=== PATIENT | female | born 1960 | race Caucasian/White ===

== ENCOUNTER 2020-05-21 08:26 | Emergency (ER) | payer OTHER ==
[~2020-05-21] VITALS: Ht 175.3 cm; Wt 85.9 kg
[~2020-05-21 08:26] MED LIST: NITR100C62 PO; NORE-83 PO
[2020-05-21 08:33] VITALS: BP 179/83
--- NOTE | 2020-05-21 08:57 | PHYS DOC ---
Past Medical History Past Medical History: Hypertension Past Surgical History: No Surgical History Smoking Status: Never Smoker Alcohol Use: Occasionally General Adult EDM: Chief Complaint: HAND PROBLEM HPI: HPI: Patient is a 60 year old female who had a mechanical fall onto gravel yesterday and her landed on her landing on her left hand. Patient complains of moderate pain in the left hand and fingers some mild pain to the left elbow better or worse with palpation and range of motion. Patient denies hitting her head or having any other injuries. Patient has abrasions to the hand and try to remove the ring on her left ring finger with a piece of string but was unsuccessful. Review of Systems: Review of Systems: Constitutional: Denies fever or chills. [] Eyes: Denies change in visual acuity. [] HENT: Denies nasal congestion or sore throat. [] Respiratory: Denies cough or shortness of breath. [] Cardiovascular: Denies chest pain or edema. [] GI: Denies abdominal pain, nausea, vomiting, bloody stools or diarrhea. [] : Denies dysuria. [] Musculoskeletal: Denies back pain but has left hand pain Integument: Denies rash. [] Neurologic: Denies headache, focal weakness or sensory changes. [] Endocrine: Denies polyuria or polydipsia. [] Lymphatic: Denies swollen glands. [] Psychiatric: Denies depression or anxiety. [] Heart Score: Risk Factors: Risk Factors: DM, Current or recent (<one month) smoker, HTN, HLP, family history of CAD, obesity. Risk Scores: Score 0 - 3: 2.5% MACE over next 6 weeks - Discharge Home Score 4 - 6: 20.3% MACE over next 6 weeks - Admit for Clinical Observation Score 7 - 10: 72.7% MACE over next 6 weeks - Early Invasive Strategies Allergies: Allergies: Allergies Coded Allergies Type Severity Reaction Last Updated Verified No Known Drug Allergies 08/26/13 No Physical Exam: PE: Constitutional: Well developed, well nourished, no acute distress, non-toxic appearance. [] HENT: Normocephalic, atraumatic, bilateral external ears normal, no trismus, nose normal. [] Eyes: PERRLA, EOMI, conjunctiva normal, no discharge. [] Neck: Normal range of motion, no tenderness, supple, no stridor. [] Cardiovascular:Heart rate regular rhythm, no murmur [] Lungs & Thorax: Bilateral breath sounds clear to auscultation [] Abdomen: Bowel sounds normal, soft, no tenderness, no masses, no pulsatile masses. [] Skin: Warm, dry, no erythema, scattered abrasions to the left hand small bruise to left elbow with bruising to left elbow Back: No tenderness, no CVA tenderness. [] Extremities: Scattered abrasions to the left hand and fingers swelling to the left pinky finger. Neurovascular intact distally. Small bruising and mild tenderness to left elbow, full range of motion, neurovascular intact distally Neurologic: Alert and oriented X 3, normal motor function, normal sensory function, no focal deficits noted. [] Psychologic: Affect normal, judgement normal, mood normal. [] Current Patient Data: Vital Signs: Vital Signs Date Time Temp Pulse Resp B/P (MAP) Pulse Ox O2 Delivery O2 Flow Rate FiO2 05/21/20 08:33 98.1 54 16 179/83 (115) 98 Room Air 98.1 EKG: EKG: [] Radiology/Procedures: Radiology/Procedures: [][facility] [address] [place] [address] IMAGING REPORT Signed PATIENT: TEAGAN CAMARGO ACCOUNT: [id number] : 1960 LOCATION: ER AGE: 60 SEX: F EXAM STATUS: REG ER ORD. PHYSICIAN: ANTOINETTE BEAN MD REASON: fall, hand injury PROCEDURE: HAND LEFT 3V HAND LEFT 3V DATE: 05/21/2020 8:55 AM INDICATION: fall, hand injury COMPARISON: None. FINDINGS: Bones: There is no evidence of acute fracture or dislocation. Joints: The joint spaces are normal. Miscellaneous: Several punctate densities overlying the third-fifth digits IMPRESSION: No evidence of acute fracture. Several punctate densities overlying the third-fifth digits which could be on the skin surface or foreign bodies. Electronically signed by: Carmen Luong MD (05/21/2020 9:43 AM) [id number] DICTATED and SIGNED BY: CARMEN LUONG MD DATE: 05/21/20 0943 Course & Med Decision Making: Course & Med Decision Making Pertinent Labs and Imaging studies reviewed. (See chart for details) [] After informed consent was obtained a ring cutter was used to remove 2 rings from the left ring finger. Patient tolerated procedure well no complications. 52-year-old female with a left hand injury. X-rays are negative for fracture but may have foreign bodies, therefore she will be placed on antibiotics. The rings have been removed Dragon Disclaimer: Dragon Disclaimer: This electronic medical record was generated, in whole or in part, using a voice recognition dictation system. Departure Departure Impression: Primary Impression: Contusion of left hand including fingers Disposition: 01 DC HOME SELF CARE/HOMELESS Condition: STABLE Referrals: ANYA JEFF (PCP) 2-3 days Patient Instructions: Abrasions Additional Instructions: EMERGENCY DEPARTMENT GENERAL DISCHARGE INSTRUCTIONS THANK YOU for coming to [facility] Emergency Department (ED) today and trusting us with your care. We trust that you had a positive experience in our Emergency Department. If you wish to speak to the department Management you can contact the engineering department chair at . YOUR FOLLOW UP INSTRUCTIONS ARE FOLLOWS: Do you have a private doctor? If you do not have a private doctor, please ask for a resource list of physicians or clinics that may be able to assist you with follow up care. The Emergency Physician has interpreted your x-rays. The X-ray specialist will also review them. If there is a change in the findings you will be notified in 48 hours when at all possible. A lab test or lab culture may have been done, your results will be reviewed and you will be notified if you need a change in treatment. ADDITIONAL INSTRUCTIONS AND INFORMATION Your care today has been supervised by a physician who is specially trained in emergency care. Many problems require more than one evaluation for a complete diagnosis and treatment. We recommend that you schedule your follow up appointment as recommended to ensure complete treatment of your illness or injury. If you are unable to obtain follow up care and continue to have a problem, or if your condition worsens we recommend that you return to the ED. We are not able to safely determine your condition over the phone nor are we able to give sound medical advice over the phone. For these safety reasons, if you call for medical advice we will ask you to come to the ED for further evaluation If you have any questions regarding these discharge instructions please call the ED at . SAFETY INFORMATION In the interest of safety, wellness, and injury prevention; we encourage you to wear your seatbelt, if you smoke; quit smoking, and we encourage your family to use protective helmet for bicycling and other sporting events that present an increased risk for head injury. IF YOUR SYMPTOMS WORSEN OR NEW SYMPTOMS DEVELOP, OR YOU HAVE CONCERNS ABOUT YOUR CONDITION; OR IF YOUR CONDITION WORSENS WHILE YOU ARE WAITING FOR YOUR FOLLOW UP APPOINTMENT; EITHER CONTACT YOUR PRIMARY CARE DOCTOR, THE PHYSICIAN WHOSE NAME AND NUMBER YOU WERE GIVEN, OR RETURN TO THE ED IMMEDIATELY. Scripts Cephalexin (KEFLEX) 500 Mg Capsule 500 MG PO QID for 7 Days, #28 CAP Prov: ANTOINETTE BEAN MD 05/21/20 ANTOINETTE BEAN MD May 21, 2020 08:57
[2020-05-21] MEDS ORDERED: TETANUS AND DIPHTHERIA TOX/PF 0.5 ML DISP.SYRIN. VAX IM ONE (09:00)
[2020-05-21] MEDS ORDERED: DIPH,PERTUSS(ACELL),TET VAC/PF 0.5 ML SYRINGE. VAX IM ONE (09:30)
--- NOTE | 2020-05-21 09:46 | RAD ---
HAND LEFT 3V DATE: 05/21/2020 8:55 AM INDICATION: fall, hand injury COMPARISON: None. FINDINGS: Bones: There is no evidence of acute fracture or dislocation. Joints: The joint spaces are normal. Miscellaneous: Several punctate densities overlying the third-fifth digits IMPRESSION: No evidence of acute fracture. Several punctate densities overlying the third-fifth digits which could be on the skin surface or foreign bodies. Electronically signed by: Ron Luong MD (05/21/2020 9:43 AM) [id number]
[2020-05-21] MEDS ORDERED: CEPH-264 PO (09:51)
[2020-05-21] MEDS ORDERED: NEOMY/BACITR/POLYMYXIN OINT PACKET. TP ONE (10:00)
== END 2020-05-21 10:09 | disposition home or self-care (01) ==
LOC: ER 08:26
DX: S60.222A Contusion of left hand, initial encounter (principal); S50.02XA Contusion of left elbow, initial encounter; I10 Essential (primary) hypertension; W18.39XA Other fall on same level, initial encounter; Y93.89 Activity, other specified; Y92.89 Other specified places as the place of occurrence of the external cause; Y99.8 Other external cause status
CPT/HCPCS: 73130; 90471; 90715; 99284